=== PATIENT | female | born 1985 | race Caucasian/White ===

== ENCOUNTER → 2021-01-16 11:20 | Outpatient (CLI) | payer MEDICARE, MEDICAID ==
--- NOTE | ~2021-01-16 | EC ---
PATIENT:TJ LARSON DATE OF SERVICE: 01/16/21 SEX: F MEDICAL RECORD: [id number] DATE OF : [birth year] LOCATION:D[facility] AGE OF PATIENT: 36 ADMISSION DATE: 01/16/21 REFERRING PHYSICIAN: INTERPRETING PHYSICIAN: KIM MONTEMAYOR MD ECHOCARDIOGRAM REPORT ECHO CHARGES 4 ECHO COMPLETE Date: 01/16/21 CLINICAL DIAGNOSIS: DYSPNEA ON EXERTION/HEART MURMUR ECHOCARDIOGRAPHIC MEASUREMENTS (adult normal given) AC root (d.<3.7cm) 3.3 cm LV Septum d (<1.2 cm> 1.0 cm Valve Excursion 1.3 cm LV Septum (systole) 1.1 cm Left Atria (s.<4.0cm> 3.0 cm LVPW d(<1.2cm) 0.9 cm RV (d.<2.3cm) 3.2 cm LVPW (sytole) 1.2 cm LV diastole(<5.6CM) 5.1 cm MV E-F(>70mm/sec) cm LV systole 3.6 cm LVOT Diameter 1.6 cm MV exc.(>10mm) 1.7 cm Est.ejection fraction (50-75%) % DOPPLER: LVIT cm/sec A 116.0cm/sec E 105.0 cm/sec LA cm/sec RVSP 20 mmHg LVOT 133 cm/sec AOP1/2T m/s Asc. Ao 177 cm/sec RVOT 111 cm/sec RA cm/sec PA 213 cm/sec AV Gradient Peak 12.52mmHg AV Mean 6.23 mmHg AV Area 1.7 cm MV Gradient Peak 4.84 mmHg MV Mean 3.06 mmHg MV Area cm COMMENTS: Glacing Machine Tender: 2 LISA CORRALES Machine Quilt Stuffer: 3 Dr. [place] TAPE# PACS Pericardial Effusion N DATE OF SERVICE: Adequate 2D, color-flow imaging, spectral Doppler, and M-Mode. FINDINGS: No LVH. LV internal dimension is normal. Wall motion is normal. EF is greater than or equal to 55%. Aortic valve is tricuspid. No evidence of stenosis by Doppler interrogation. Left atrium is normal. Mitral valve shows no prolapse. Trivial MR. Right side is grossly normal. Trace TR. TRANSINT:[id number] Voice Confirmation ID: [id number] DOCUMENT ID: [id number] ECHOCARDIOGRAM REPORT [id number] TJ LARSON GREGORY A MD CC: [id number] DICTATION DATE: 01/16/21 1533 BUTTON BREAKER: 01/16/21 2328 [place] [id number] [place] [id number]
== END | disposition home or self-care (01) ==
LOC: D.HCCECHO 11:20
PROVIDERS: ATTEND Internal Medicine Interventional Cardiology
DX: R06.09 Other forms of dyspnea (principal)